=== PATIENT | female | born 1960 | race American Indian/Alaskan Native ===

== ENCOUNTER 2024-06-13 18:13 | Emergency (ER) | payer MEDICAID, SELFPAY ==
--- NOTE | 2024-06-13 18:56 | XR_ITS ---
Examination: Wrist, left 3 views Technique: Wrist AP, oblique, lateral 3 views Date and time of exam: June 13, 2024 1859 hrs. Indications: Patient fell today with injury to the wrist, left wrist pain Findings: No definite acute fracture Old appearing area of bone density dorsal to the carpal bones on the lateral view No dislocation No opaque foreign body Impression: No definite acute fracture, if wrist pain persists recommend CT scan wrist without contrast follow-up
--- NOTE | 2024-06-13 18:56 | XR_ITS ---
Examination: Left elbow 3 views Technique: Elbow AP, oblique, lateral 3 views Exam date and time: June 13, 2024 1911 hrs. Indications: Patient fell today with injury to the elbow, elbow pain. Findings: No acute fracture No dislocation No elbow effusion Impression: No acute fracture.
--- NOTE | 2024-06-13 18:56 | XR_ITS ---
Examination: Forearm, left, 2 views. Technique: Forearm, AP, lateral 2 views Date and time of exam: June 13, 2024 1859 hrs. Indications: Patient fell today with injury to the forearm, forearm pain. Findings: No acute fracture No dislocation No foreign body Impression: No acute fracture
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
[2024-06-13] MEDS: HYDROcodone/APAP 5/325 TABLET 1 TAB PO (19:38)
[2024-06-13 19:39] VITALS: BMI 27.6
[2024-06-13 20:02] VITALS: BP 138/89; PULSE 79; RESP 20; TEMP 36.6; O2SAT 95
== END 2024-06-13 21:54 | disposition home or self-care (01) ==
PROVIDERS: Emergency Provider Emergency Medicine; PCP Nurse Practitioner Family
DX: S63.502A Unspecified sprain of left wrist, initial encounter (principal); S59.902A Unspecified injury of left elbow, initial encounter; S59.912A Unspecified injury of left forearm, initial encounter; W19.XXXA Unspecified fall, initial encounter
CPT/HCPCS: 73080; 73090; 73110; 99283; A9270

== ENCOUNTER → 2024-08-07 | Outpatient (CLI) | payer MEDICAID, SELFPAY ==
--- NOTE | 2024-08-07 13:50 | XR_ITS ---
Examination: Wrist, right 3 views Technique: Wrist AP, oblique, lateral 3 views Date and time of exam: August 07, 2024 1423 hours INDICATIONS: Injury to the right wrist 3 weeks ago. FINDINGS: Intra-articular comminuted fractures distal radial metaphysis Fracture lines are still evident Alignment is satisfactory IMPRESSION: Recommend continued follow-up to document more complete healing of comminuted fractures distal radial metaphysis
== END | disposition home or self-care (01) ==
LOC: CDIM 13:24
PROVIDERS: PCP Physician Assistant; Referring Provider Physician Assistant; Visit Provider Physician Assistant
DX: S62.101D Fracture of unspecified carpal bone, right wrist, subsequent encounter for fracture with routine healing (principal); X58.XXXD Exposure to other specified factors, subsequent encounter
CPT/HCPCS: 73110

== ENCOUNTER → 2024-10-22 | Outpatient (CLI) | payer MEDICAID, SELFPAY ==
--- NOTE | 2024-10-22 10:30 | XR_ITS ---
Examination: CT right wrist, without contrast. 2-D sagittal reconstructions. 2-D coronal reconstructions. 3-D reconstructions. Date and time of exam:October 22, 2024 1018 hours INDICATIONS: Injury to the wrist July 2024 CTDI: vol (mGy):3.56 DLP: (mGycm):72.5 Technique: Multiple 1.25 mm axial sections of the right wrist without intravenous contrast have been obtained. 2-D sagittal and coronal reconstructions have been obtained. 3-D reconstructions have been obtained. Low dose protocols were performed. One or more of the following dose reduction techniques were used; automated exposure control, adjustment of the mA and/or KV according to patient size, use of iterative reconstruction technique. Findings: Healed fracture distal radial metaphysis with mild impaction Carpal bones intact Healing fracture ulnar styloid tip No dislocation No opaque foreign body IMPRESSION: Healed fracture distal radial metaphysis Mild osteoarthritis first carpometacarpal joint
== END | disposition home or self-care (01) ==
LOC: CCTX 09:59
PROVIDERS: Referring Provider Internal Medicine; Visit Provider Internal Medicine
DX: M18.11 Unilateral primary osteoarthritis of first carpometacarpal joint, right hand (principal); Z87.81 Personal history of (healed) traumatic fracture
CPT/HCPCS: 73200

== ENCOUNTER 2025-03-29 13:00 | Outpatient (RCR) | payer MEDICAID, SELFPAY ==
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
--- NOTE | 2025-03-08 16:10 | PT.ODAYNRPT ---
PT Outpatient Daily Note OP Daily Note Outpatient Physical Therapy Treatment Date: 03/08/25 Visit Reasons: RT distal radius fracture Subjective: Pt reports hand pain and stiffness. 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 Objective: Please see flow sheet for the tania list. Assessment: Pt requires verbal cues and demonstration to perform new interventions with desired technique and avoid compensatory motions. Plan: Continue with pOC. Length of Time (minutes) of Treatment: 30 Minutes Procedure Charges [facility] Initial 30 minutes: Yes
--- NOTE | 2025-03-20 13:32 | PT.ODAYNRPT ---
PT Outpatient Daily Note OP Daily Note Outpatient Physical Therapy Treatment Date: 03/20/25 Visit Reasons: RT distal radius fracture Subjective: Pt's wrist and hand is feeling a little better with physical therapy. Pt still has pain around the fracture site. Objective: Please see flow chart for list of ther ex performed Assessment: progressing with wrist AROM in all plane. Cues to pace throughout PT session to work on form and engaging the correct muscle Plan: Continue with PT Length of Time (minutes) of Treatment: 30 Minutes Procedure Charges Therapeutic Exercise 30 minutes: Yes
--- NOTE | 2025-03-22 14:08 | PT.ODAYNRPT ---
PT Outpatient Daily Note OP Daily Note Outpatient Physical Therapy Treatment Date: 03/22/25 Visit Reasons: RT distal radius fracture Subjective: Pt c/o wrist being stiff and painful, as per pt she uses hand brace because it hurts if she does not have it on. Objective: Please see flow sheet for ther ex list. Assessment: Pt instructed on wrist stretches, poor tolerance pt highly guarded due to pain response. Plan: Continue with poC. Length of Time (minutes) of Treatment: 30 Minutes Procedure Charges MCL Initial 30 minutes: Yes
--- NOTE | 2025-03-27 13:29 | PT.ODAYNRPT ---
PT Outpatient Daily Note OP Daily Note Outpatient Physical Therapy Treatment Date: 03/27/25 Visit Reasons: RT distal radius fracture Subjective: Pt's hand is stiff. Pt continues to wrist her wrist brace intermittently. According to patient she is unable to lift anything with her right hand if she doesnt wear the brace. Objective: Please see flow chart for list of ther ex performed Assessment: patient instructed and educated to wean off the brace which will help improve stiffness and strength. Pt gave verbal understanding. Advance patient to all red resistance hand exercises today. Plan: Continue with PT Length of Time (minutes) of Treatment: 30 Minutes Procedure Charges Therapeutic Exercise 30 minutes: Yes
--- NOTE | 2025-03-29 13:38 | PT.ODAYNRPT ---
PT Outpatient Daily Note OP Daily Note Outpatient Physical Therapy Treatment Date: 03/29/25 Visit Reasons: RT distal radius fracture Subjective: Pt worked 4 hrs today. Pt has slowly wean off the brace and wrist feels like it's going to break. Objective: Please see flow chart for list of ther ex performed Assessment: progressing with wrist AROM in all plane, however, continue to experience pain with hand exercises. Plan: Continue with PT Length of Time (minutes) of Treatment: 30 Minutes Procedure Charges [facility] Initial 30 minutes: Yes
== END 2025-04-05 23:59 | disposition home or self-care (01) ==
LOC: CPTX 13:00
PROVIDERS: PCP Plastic Surgery; Referring Provider Plastic Surgery; Visit Provider Plastic Surgery
DX: M79.641 Pain in right hand (principal); R53.1 Weakness; S52.501D Unspecified fracture of the lower end of right radius, subsequent encounter for closed fracture with routine healing; V18.9XXD Unspecified pedal cyclist injured in noncollision transport accident in traffic accident, subsequent encounter
CPT/HCPCS: 97110; 97162

== ENCOUNTER 2025-05-08 14:07 | Outpatient (RCR) | payer MEDICAID, SELFPAY ==
--- NOTE | 2025-05-08 15:42 | PTNOTE_ITS ---
PT OP Progress/Discharge Note Date of Service: 05/08/25 Progress Note/DC Note Progress Note/Discharge Note: Progress Note Patient Information Visit Reasons: RIGHT HAND PAIN Medical Diagnosis: Right Distal Radius Fracture Treatment Dx #1: Right Hand Weakness Treatment Dx #2: Right Hand Pain Service Continue Service or Discharge: Continue Service Certification Date Certification Dates: 05/08/25 to 08/06/25 Status Subjective: Pt's wrist is much better. Pt mentioned she can move the wrist more with less pain and use it at work. Pt still drops object due to weakness of the hands. Pt has been able to international bank manager, push, perform self care, and ADLs with less limitation. Pt will like to continue physical therapy. 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 Pt has not met set goals in therapy and will continue to benefit from physical therapy; thank you for your referrals. Plan: Continue with PT/POC and add 6 sessions (2 x wk for 3 wks) Procedure Charges Therapeutic Exercise 30 minutes: Yes
--- NOTE | 2025-05-15 14:29 | PT.ODS1RPT ---
PT OP Progress/Discharge Note Date of Service: 05/15/25 Progress Note/DC Note Progress Note/Discharge Note: DC Note Patient Information Visit Reasons: RIGHT HAND PAIN Service Discharge Date: 05/15/25 Status Assessment: Pt has been seen for 6 visits (eval + 5 visits) inconsistently. Pt last treated on 05/08/25 and has multiple no showed (03/13, 04/03, 04/05, 05/13, and 05/15). At this time Pt will be d/c from care due to non-compliance per attendance policy. Pt did not meet set goals in therapy; thank you for your referrals.
== END 2025-06-05 23:59 | disposition home or self-care (01) ==
LOC: CPTX 14:07
PROVIDERS: PCP Plastic Surgery; Referring Provider Plastic Surgery; Visit Provider Plastic Surgery
DX: M79.641 Pain in right hand (principal); M25.531 Pain in right wrist; R53.1 Weakness; S52.501D Unspecified fracture of the lower end of right radius, subsequent encounter for closed fracture with routine healing; V19.9XXD Pedal cyclist (driver) (passenger) injured in unspecified traffic accident, subsequent encounter
CPT/HCPCS: 97110